=== PATIENT | female | born 1940 | race Caucasian/White ===

== ENCOUNTER 2017-09-12 08:14 | Inpatient (IN) | payer OTHER, MEDICAID ==
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
[2017-09-12 08:33] LABS: PLATELET COUNT 421 10^3/uL (150-400)
[2017-09-12] MEDS ORDERED: ROCURONIUM 50 MG/5 ML VIAL ONE (08:37)
[2017-09-12] MEDS ORDERED: MIDAZOLAM 2 MG/2 ML VIAL ONE (08:37)
[2017-09-12] MEDS ORDERED: PROPOFOL 200 MG/20 ML VIAL ONE (08:37)
[2017-09-12] MEDS ORDERED: fentaNYL 100 MCG/2 ML INJ ONE ×3 (08:37→10:46)
[2017-09-12] MEDS ORDERED: SUCCINYLCHOLINE CHLORIDE 200 MG/10 ML SYR IVP ONE (08:37)
[2017-09-12] MEDS ORDERED: LIDOCAINE 2% 5 ML SDV ONE (08:37)
[2017-09-12 08:41] LABS: INR 0.87 (0.83-1.16)
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
[2017-09-12] MEDS ORDERED: ceFAZolin 2 GM/SWFI 20 ML SYR IVP ONE (08:54)
[2017-09-12] MEDS ORDERED: BUPIVACAINE 0.5% 30 ML SDV ONE ×2 (09:09→09:38)
[2017-09-12] MEDS ORDERED: ONDANSETRON 4 MG/2 ML VIAL ONE ×3 (09:15→10:36)
[2017-09-12] MEDS ORDERED: DEXAMETHASONE 4 MG/ML VIAL ONE (09:15)
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
[2017-09-12] MEDS ORDERED: NALOXONE HCL 0.4 MG/ML INJ IVP PRN ×2 (09:32→10:42)
[2017-09-12] MEDS ORDERED: NS 500 ML IV PRN (09:32)
--- NOTE | 2017-09-12 09:56 | POSTOPPROG ---
Post Op Note Date of Operation: 09/12/17 Surgeon: Pietro Romero (, FACS) Anesthesiologist: Justin Junior MD Anesthesia: GET(General Endotracheal) Pre-op Diagnosis: SW to abd Post-op Diagnosis: same Procedure: laparotomy/lysis adhesions Findings: no visceral/vascular injury, trivial omental injury Inf/Abcess present in the surg proc area at time of surgery?: No EBL: Minimal (10ml) Drains: Rohini Specimen(s): none
[2017-09-12] MEDS ORDERED: ceFAZolin 2 GM/SWFI 2 GM/20 ML SYR IVP ONE (10:00)
[2017-09-12] MEDS ORDERED: BUPIVACAINE 0.5% NB SCH (10:00)
[2017-09-12] MEDS ORDERED: PUMP SET NB SCH (10:00)
[2017-09-12] MEDS ORDERED: HYDROmorphONE/DILAUDID 1 MG/ML INJ ONE ×2 (10:10→10:46)
[2017-09-12] MEDS: ONDANSETRON 4 MG/2 ML VIAL IVP PRN ×2 (10:20→10:38)
[2017-09-12] MEDS: fentaNYL 100 MCG/2 ML INJ IVP PRN ×3 (10:21→11:18)
[2017-09-12] MEDS: HYDROmorphONE/DILAUDID 1 MG/ML INJ IVP PRN ×3 (10:22→11:13)
[2017-09-12] MEDS ORDERED: BUPIVACAINE 0.25% 270 ML in PUMP SET 1 EA NB SCH (10:30)
[2017-09-12] MEDS ORDERED: LR 1,000 ML IV SCH (10:30)
[2017-09-12] MEDS: PROMETHAZINE HCL 25 MG/ML INJ IVP PRN ×2 (10:45→11:45)
[2017-09-12] MEDS ORDERED: PROMETHAZINE HCL 25 MG/ML INJ ONE (10:46)
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
--- NOTE | 2017-09-12 14:32 | POSTANESTH ---
Post Anesthetic Evaluation Cardiovascular Status: Normal, Stable, Similar to Pre-Op Cond Respiratory Status: Normal, Stable, Similar to Pre-op Cond. Level of Consciousness/Mental Status: Can Participate in Eval, Alert and Oriented Pain Control: Adequate, Prn Tx Ordered Nausea/Vomiting Control: Adequate, Prn Tx Ordered Complications Possibly Related to Anesthesia: None Noted
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
[2017-09-12] MEDS: ACETAMINOPHEN 325 MG TAB PO PRN (20:40)
[2017-09-13] MEDS ORDERED: LORazepam 2 MG/ML INJ ONE (00:28)
[2017-09-13] MEDS ORDERED: HALOPERIDOL LACT 5 MG/ML INJ ONE (00:29)
[2017-09-13] MEDS: LORazepam 2 MG/ML INJ IVP PRN (00:42)
[2017-09-13] MEDS ORDERED: HALOPERIDOL LACT 5 MG/ML INJ IVP ONE (00:45)
[2017-09-13] MEDS ORDERED: HALOPERIDOL LACT 5 MG/ML INJ IVP PRN (09:07)
[2017-09-13] MEDS: ENOXAPARIN 40 MG/0.4 ML SYR SC SCH (09:50)
[2017-09-13] MEDS: ACETAMINOPHEN 325 MG TAB PO PRN (09:51)
[2017-09-13] MEDS: LISINOPRIL 5 MG TAB PO SCH (09:51)
[2017-09-13] MEDS: DILTIAZEM XR 240 MG CAP PO SCH (09:51)
[2017-09-13] MEDS: PANTOPRAZOLE SODIUM 40 MG TAB PO SCH (09:51)
[2017-09-13] MEDS: LEVOTHYROXINE 88 MCG TAB PO SCH (09:52)
--- NOTE | 2017-09-13 10:16 | SOAPPROG ---
SOAP Progress Note Assessment/Plan: Assessment: Plan: Subjective: feels fine- minimal incicsional pain pid 1 ex lap- mild omental bleeding only finding after sw abdomen. on q pain pump in place pe tertiary trauma survey done- no new injuries identified abd sfot lungs clear heart nml s1s2 no m access: pod 1 ex lap on clearliq diet, yepez out. should progress rapidly to reg diet. should be ready for psyce eval and discharge in 1- 2 addidtional days. Objective: Vital Signs Temp Pulse Resp BP Pulse Ox 36.8 C 78 16 114/58 L 99 09/13/17 04:00 09/13/17 09:51 09/13/17 04:00 09/13/17 09:51 09/13/17 04:00 Laboratory Results 09/13/17 06:20 09/12/17 09/13/17 09/14/17 05:59 05:59 05:59 Intake Total 3805 Output Total 1785 Balance 2019 PT 12.0 SEC (12.0-15.0) 09/12/17 08:25 INR 0.87 (0.83-1.16) 09/12/17 08:25 ICD10 Worksheet Patient Problems: Problems Problem Status Onset Stab wound of abdominal wall Acute Suicidal ideation Acute
[2017-09-13] MEDS: HYDROCODONE/APAP 5/325 TAB PO PRN ×3 (10:31→19:22)
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
--- NOTE | 2017-09-13 15:20 | ASMTCMCOM ---
CM Note CM Note Notes: Chart reviewed. Spoke to intake co-ordinators at [facility]. Relayed wound care needs and information regarding psychiatric POA not in place presently. Patient on M1 Hold will need psychiatric eval when medically stable. Has on q for pain control, Refusing to see daughter presently. Will resume conversation with [facility] tomorrow. CM to follow. Date Signed: 09/13/2017 03:20 PM Electronically Signed By:Rena Jeronimo RN
[2017-09-13] MEDS: MIRTAZAPINE 15 MG TAB PO SCH (19:23)
[2017-09-13] MEDS ORDERED: NON-FORMULARY NEW DRUG (Mirtazapine [Remeron] 15 MG) PO SCH (21:00)
[2017-09-14] MEDS: LEVOTHYROXINE 88 MCG TAB PO SCH (04:13)
[2017-09-14] MEDS: HYDROCODONE/APAP 5/325 TAB PO PRN ×4 (04:13→20:39)
[2017-09-14] MEDS ORDERED: PROTOCOL MAGNESIUM 1 DOSE IV PRN (07:17)
[2017-09-14] MEDS ORDERED: PROTOCOL POTASSIUM 1 DOSE MISC PRN (07:17)
[2017-09-14] MEDS ORDERED: PROTOCOL CALCIUM 1 DOSE IV PRN (07:17)
[2017-09-14] MEDS ORDERED: PROTOCOL K PHOSPHATE 1 DOSE IV PRN (07:17)
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
[2017-09-14] MEDS: DILTIAZEM XR 240 MG CAP PO SCH (08:28)
[2017-09-14] MEDS: PANTOPRAZOLE SODIUM 40 MG TAB PO SCH (08:28)
[2017-09-14] MEDS: ENOXAPARIN 40 MG/0.4 ML SYR SC SCH (08:29)
[2017-09-14] MEDS: LISINOPRIL 5 MG TAB PO SCH (08:29)
[2017-09-14 08:56] LABS: PLATELET COUNT 311 10^3/uL (150-400)
[2017-09-14] MEDS ORDERED: CALCIUM GLUCONATE 50 ML IV ONE (09:47)
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
[2017-09-14] MEDS ORDERED: MAGNESIUM HYDROXIDE 30 ML UDCUP PO PRN (10:28)
[2017-09-14] MEDS ORDERED: POLYETHYLENE GLYCOL 3350 17 GM PKT PO PRN (10:28)
[2017-09-14] MEDS ORDERED: BISACODYL 10 MG SUPP PR PRN (10:28)
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
--- NOTE | 2017-09-14 13:10 | ASMTCMCOM ---
CM Note CM Note Notes: Spokewith Prakash (Sus[facility]) who states the facility can accept patient tomorrow if medically cleared and on -1Hold.Spoke to Jas (psych) and he reports patient will need "Rights" read to her. I have clarified with Susanne that the paperwork needed is the original M1 Hold that will need renewed tomorrow (RN aware), labratory data faxed ([phone])Emala form to be completed and [facility] stretcher transport is to be arranged. Right read to patient ( she signed) and original in chart. This document also needs to go the the facility, Patient states she doesn't want to go to new facility but she also thinks she is currently at [facility]. Called and spoke to her daughter Lili who is agreement with plan. I erified with Prakash that Lili can bring clothing to her mother as long as it is string free. CM to follow. Date Signed: 09/14/2017 01:10 PM Electronically Signed By:Rena Jeronimo RN
--- NOTE | 2017-09-14 16:03 | ASMTCMCOM ---
CM Note CM Note Notes: Spoke with [facility] intake. (Susanne) who states the facility can accept patient tomorrow if medically cleared then will need a TLC eval which can't be ordered till patient cleared medically and on M1Hold.Spoke to Jas (psych) and he reports patient will need "Rights" read to her. I have clarified with Susanne that the paperwork needed is the original M1 Hold that will need renewed tomorrow (RN aware), labs and data faxed ([phone]) Emtala form to be completed and [facility] stretcher transport is to be arranged. Right read to patient ( she signed) and original in chart. This document also needs to go the the facility, Patient states she doesn't want to go to new facility but noteably she also thinks she is currently at [facility]. Called and spoke to her daughter Lili who is agreement with plan. I verified with [facility] that Lili can bring clothing to her mother as long as it is "string" free. CM to follow. Date Signed: 09/14/2017 04:03 PM Electronically Signed By:Rena Jeronimo RN
--- NOTE | 2017-09-14 16:21 | ASMTCMCOM ---
CM Note CM Note Notes: CM called [facility] one more time for clarity of needs for meeting admission criteria. Per admission intake Psychiatric eval by TLC absolutely required for patient to be considered for inpatient. Notified Merry, patient daughter of likelihood her mother would be inpt till Sunday as Holiday falls on Sunday. CM to follow Date Signed: 09/14/2017 04:20 PM Electronically Signed By:Rena Jeronimo RN
[2017-09-14] MEDS: SENNOSIDES/DOCUSATE SODIUM TAB PO SCH (20:38)
[2017-09-14] MEDS: MIRTAZAPINE 15 MG TAB PO SCH (20:38)
[2017-09-14] MEDS: ONDANSETRON 4 MG/2 ML VIAL IVP PRN (20:39)
[2017-09-14] MEDS ORDERED: FUROSEMIDE 20 MG/2 ML VIAL IVP ONE (21:15)
[2017-09-15] MEDS: LEVOTHYROXINE 88 MCG TAB PO SCH (05:48)
[2017-09-15] MEDS: ONDANSETRON 4 MG/2 ML VIAL IVP PRN ×3 (05:54→22:02)
[2017-09-15 05:59] LABS: PLATELET COUNT 334 10^3/uL (150-400)
[2017-09-15] MEDS: SENNOSIDES/DOCUSATE SODIUM TAB PO SCH ×2 (07:45→20:34)
[2017-09-15] MEDS: DILTIAZEM XR 240 MG CAP PO SCH (07:46)
[2017-09-15] MEDS: PANTOPRAZOLE SODIUM 40 MG TAB PO SCH (07:46)
[2017-09-15] MEDS: LISINOPRIL 5 MG TAB PO SCH (07:46)
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
[2017-09-15] MEDS ORDERED: CALCIUM GLUCONATE 50 ML IV ONE (08:13)
[2017-09-15] MEDS: ENOXAPARIN 40 MG/0.4 ML SYR SC SCH (09:09)
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
[2017-09-15] MEDS: MIRTAZAPINE 15 MG TAB PO SCH (20:34)
[2017-09-15] MEDS: HYDROCODONE/APAP 5/325 TAB PO PRN (23:50)
[2017-09-16 03:50] LABS: PLATELET COUNT 429 10^3/uL (150-400)
[2017-09-16] MEDS: ONDANSETRON 4 MG/2 ML VIAL IVP PRN ×3 (04:00→22:24)
[2017-09-16] MEDS: LEVOTHYROXINE 88 MCG TAB PO SCH (06:01)
[2017-09-16] MEDS: SENNOSIDES/DOCUSATE SODIUM TAB PO SCH ×2 (08:46→19:58)
[2017-09-16] MEDS: PANTOPRAZOLE SODIUM 40 MG TAB PO SCH (08:46)
[2017-09-16] MEDS: DILTIAZEM XR 240 MG CAP PO SCH (08:46)
[2017-09-16] MEDS: LISINOPRIL 5 MG TAB PO SCH (08:46)
[2017-09-16] MEDS: ENOXAPARIN 40 MG/0.4 ML SYR SC SCH (08:47)
--- NOTE | 2017-09-16 09:24 | TRAUMAPN ---
Subjective: awake/resting comfortably emesis x 1 yesterday Objective: Vital Signs Temp Pulse Resp BP Pulse Ox 36.7 C 108 H 20 159/75 H 89 L 09/16/17 07:48 09/16/17 07:48 09/16/17 07:48 09/16/17 07:48 09/16/17 07:48 Laboratory Results 09/16/17 03:40 09/16/17 03:40 09/15/17 09/16/17 09/17/17 05:59 05:59 05:59 Intake Total 1700 1550 Balance 1700 1550 PT 12.0 SEC (12.0-15.0) 09/12/17 08:25 INR 0.87 (0.83-1.16) 09/12/17 08:25 - C-Spine Clearance Cervical Spine Cleared: Yes Provider who Cleared Cervical Spine: ANA LILIA Physical Exam - Physical Exam General Appearance: mild distress Respiratory: lungs clear, normal breath sounds, decreased breath sounds Cardiac/Chest: regular rate, rhythm Abdomen: non-tender, soft, distended, other (tympanitic/incision o.k.) Pelvic Exam: deferred Rectal: deferred Neuro/Psych: alert, oriented x 3, depressed affect
[2017-09-16] MEDS: HYDROCODONE/APAP 5/325 TAB PO PRN ×2 (10:55→11:32)
--- NOTE | 2017-09-16 12:37 | SOAPPROG ---
Downtime Inpatient MD Late Entry SOAP Note: KUB shows massive gastric distention/will place NGT and make patient NPO until resolved
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
[2017-09-16] MEDS: D5W 1/2 NS W/ 20 KCl/L 1,000 ML IV SCH (17:38)
[2017-09-16] MEDS: MIRTAZAPINE 15 MG TAB PO SCH (19:58)
[2017-09-17] MEDS: D5W 1/2 NS W/ 20 KCl/L 1,000 ML IV SCH (01:58)
[2017-09-17] MEDS: ONDANSETRON 4 MG/2 ML VIAL IVP PRN (04:44)
[2017-09-17 05:06] LABS: PLATELET COUNT 394 10^3/uL (150-400)
[2017-09-17] MEDS ORDERED: CALCIUM GLUCONATE 50 ML IV ONE (05:55)
[2017-09-17] MEDS: DILTIAZEM XR 240 MG CAP PO SCH (08:31)
[2017-09-17] MEDS: LISINOPRIL 5 MG TAB PO SCH (08:32)
[2017-09-17] MEDS: SENNOSIDES/DOCUSATE SODIUM TAB PO SCH (08:32)
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
[2017-09-17] MEDS: ENOXAPARIN 40 MG/0.4 ML SYR SC SCH (11:27)
[2017-09-17] MEDS: LEVOTHYROXINE 100 MCG/5 ML SYR IVP SCH (11:27)
[2017-09-17] MEDS: PANTOPRAZOLE SODIUM 40 MG VIAL IVP SCH (11:27)
[2017-09-17] MEDS: LORazepam 2 MG/ML INJ IVP PRN ×2 (11:28→15:16)
[2017-09-17] MEDS ORDERED: LIDOCAINE 2% JELLY 20 ML (UROJECT) ONE (11:48)
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
[2017-09-17] MEDS ORDERED: LABETALOL HCL 5 MG/ML 20 ML MDV IVP PRN (15:59)
--- NOTE | 2017-09-17 16:33 | ASMTCMCOM ---
CM Note CM Note Notes: Need TLC to eval when patient is medically cleared for placement at [facility]. Date Signed: 09/17/2017 04:33 PM Electronically Signed By:Susie Valdes LCSW
[2017-09-17] MEDS: NS 1,000 ML IV SCH (23:34)
[2017-09-18 02:41] LABS: PLATELET COUNT 323 10^3/uL (150-400)
[2017-09-18] MEDS ORDERED: DILTIAZEM 125 MG in D5W 125 ML IV SCH (06:30)
[2017-09-18] MEDS ORDERED: AMIODARONE HCL 200 ML IV SCH (06:30)
[2017-09-18] MEDS ORDERED: DILTIAZEM HCL/D5W 125 ML IV SCH (06:30)
[2017-09-18] MEDS: PANTOPRAZOLE SODIUM 40 MG VIAL IVP SCH (08:37)
[2017-09-18] MEDS: ENOXAPARIN 40 MG/0.4 ML SYR SC SCH (08:37)
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
--- NOTE | 2017-09-18 11:49 | ECHO ---
[email or web address] [address] [address] Main: [phone] Fax: Transthoracic Echocardiogram Name: AYANNA PINEDA MR#: [id number] Study Date: 09/18/2017 Study Time: 07:48 AM Date of : 1940 Age: 77 year(s) Height: 162.6 cm (64 in.) Weight: 63.5 kg (140 lb.) BSA: 1.68 m2 Gender: Female Examination: Echo Indication: Arrythmia, A-fib Image Quality: Contrast: Requested by: Sujata Barnes BP: 122 mmHg/63 mmHg Heart Rate: Rhythm: Atrial fibrillation Indication: Arrythmia, A-fib Procedure [facility] Physical Therapist: Jeferson Townsend Reading Physician: Zoltan Hernandez Requesting Provider: Conclusions: Normal size left ventricle. There is systolic anterior motion of the anterior mitral valve leaflet. Global hypercontractility of the left ventricle. EF is 78 %. No regional wall motion abnormality. Diastolic dysfunction is present. . There is mid left venticular gradient with chordal ALICIA. The gradient is 72mmHg. Normal size right ventricle. There is systolic anterior motion of the anterior mitral valve leaflet. There is moderate focal calcification of the posterior mitral valve leaflet.. The aortic valve is normal in appearance and function. There is no aortic valve regurgitation. The tricuspid valve is normal in appearance and function. There is no subcostal view due to surgical dressing.. Measurements: Chambers Valvular Assessment AV/MV Valvular Assessment TV/PV Normal Normal Normal Name Value Range Name Value Range Name Value Range Ao Enedina (MM): 2.9 cm (2.2 cm-3.7 AV Vmax: 2.59 m/s (1 m/s-1.7 TR Vmax: 4.13 mm/s ( - ) cm) m/s) TR PGmax: 68 mmHg ( - ) IVSd (2D): 0.8 cm (0.6 cm-1.1 AV maxP mmHg ( - ) syst. PAP: 73 mmHg ( - ) cm) LVOT Vmax: 2.51 m/s (0.7 m/s-1.1 LVDd (2D): 3.7 cm (3.9 cm-5.3 m/s) cm) MV E Vmax: 0.97 m/s ( - ) LVDs (2D): 2.0 cm (2.1 cm-4 MV A Vmax: 1.65 m/s ( - ) cm) MV E/A: 0.59 ( - ) LVPWd (2D): 0.8 cm ( - ) MV meanP mmHg ( - ) LVEF (2D): 78 (>=54 %) Patient: AYANNA PINEDA Study Date: 09/18/2017 Page 1 of 2 07:48 AM Continued Measurements: Chambers Valvular Assessment AV/MV Valvular Assessment TV/PV Name Value Name Value Name Value LADs Lon.7 cm MV Annulus: 3.0 cm CVP (est.): 5 mmHg LA Area: 18.3 cm2 MV VTI: 43.30 cm MR ERO: 0.120 cm2 MR PISA radius: 5 mm MR Reg. Volume: 17 ml MR Reg. Fraction: 6 % Findings: Left Ventricle: Normal size left ventricle. There is systolic anterior motion of the anterior mitral valve leaflet. Global hypercontractility of the left ventricle. EF is 78 %. No regional wall motion abnormality. Diastolic dysfunction is present. . There is mid left venticular gradient with chordal ALICIA. The gradient is 72mmHg. Right Ventricle: Normal size right ventricle. Left Atrium: The left atrium is normal in size. Right Atrium: The right atrium is normal in size. Mitral Valve: Mild to moderate mitral regurgitation. There is systolic anterior motion of the anterior mitral valve leaflet. There is moderate focal calcification of the posterior mitral valve leaflet.. Aortic Valve: The aortic valve is normal in appearance and function. There is no aortic valve regurgitation. Tricuspid Valve: The tricuspid valve is normal in appearance and function. Pulmonic Valve: The pulmonic valve is normal in appearance and function. Aorta: The aorta is normal. Pericardium: No pericardial effusion. Exam Comments: There is no subcostal view due to surgical dressing.. (No Signature Object) Patient: AYANNA PINEDA Study Date: 09/18/2017 Page 2 of 2 07:48 AM [id number]
[2017-09-18] MEDS: LEVOTHYROXINE 100 MCG/5 ML SYR IVP SCH (12:08)
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
--- NOTE | 2017-09-18 17:36 | ASMTCMCOM ---
CM Note CM Note Notes: Contacted [facility] and gave them an update. So we are waiting for a psych eval when cleared medically. Date Signed: 09/18/2017 05:36 PM Electronically Signed By:Susie Valdes LCSW
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
[2017-09-18] MEDS: MIRTAZAPINE 15 MG ODTAB PO SCH (20:26)
[2017-09-18] MEDS: LORazepam 2 MG/ML INJ IVP PRN (23:29)
[2017-09-18] MEDS: NS 1,000 ML IV SCH (23:30)
[2017-09-19] MEDS: LORazepam 2 MG/ML INJ IVP PRN ×2 (04:51→19:49)
[2017-09-19 05:15] LABS: PLATELET COUNT 370 10^3/uL (150-400)
[2017-09-19] MEDS ORDERED: D50W 25 GM/50 ML SYR IVP ONE (06:20)
[2017-09-19] MEDS ORDERED: D50W 25 GM/50 ML VIAL IVP ONE (06:30)
[2017-09-19] MEDS: NS 1,000 ML IV SCH (09:10)
[2017-09-19] MEDS: PANTOPRAZOLE SODIUM 40 MG VIAL IVP SCH (09:10)
[2017-09-19] MEDS: ENOXAPARIN 40 MG/0.4 ML SYR SC SCH (09:10)
[2017-09-19] MEDS ORDERED: PROTOCOL POTASSIUM 1 DOSE MISC PRN (09:32)
[2017-09-19] MEDS: LEVOTHYROXINE 100 MCG/5 ML SYR IVP SCH (10:41)
[2017-09-19] MEDS ORDERED: POTASSIUM CL 10 MEQ TAB PO ONE ×2 (10:46→19:28)
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
[2017-09-19] MEDS: MIRTAZAPINE 15 MG ODTAB PO SCH (19:49)
[2017-09-19] MEDS: ACETAMINOPHEN 325 MG TAB PO PRN (23:45)
[2017-09-20] MEDS: LORazepam 2 MG/ML INJ IVP PRN (02:09)
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
[2017-09-20 05:54] LABS: PLATELET COUNT 393 10^3/uL (150-400)
[2017-09-20] MEDS ORDERED: POTASSIUM CL 10 MEQ TAB PO ONE (06:43)
[2017-09-20] MEDS: LEVOTHYROXINE 88 MCG TAB PO SCH (06:44)
[2017-09-20] MEDS ORDERED: CHOLECALCIFEROL VIT D3 50,000 UNIT CAP PO SCH (09:00)
[2017-09-20] MEDS: DILTIAZEM XR 240 MG CAP PO SCH (09:23)
[2017-09-20] MEDS: PANTOPRAZOLE SODIUM 40 MG TAB PO SCH (09:24)
[2017-09-20] MEDS: ENOXAPARIN 40 MG/0.4 ML SYR SC SCH (09:24)
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
[2017-09-20] MEDS ORDERED: LORazepam 2 MG/ML INJ IVP PRN (09:36)
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
--- NOTE | 2017-09-20 15:38 | ASMTCMCOM ---
CM Note CM Note Notes: Laney was able to complete the psych eval as patient became more interactive. [facility] has decided patient will go for inpatient treatment. [place] [facility] no longer has beds so [facility] will now need to complete the bed search. Laney renewed the M1 which had . The current M1 is in the front of the chart. Also, Laney gave me a copy of the patient rights which is filed in the front of the patient's chart. CM available for consult. Date Signed: 09/20/2017 03:38 PM Electronically Signed By:Sweetie Burch LCSW
[2017-09-20] MEDS ORDERED: LOPERAMIDE HCL 2 MG CAP PO PRN (16:40)
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
[2017-09-20] MEDS: MIRTAZAPINE 15 MG ODTAB PO SCH (20:48)
[2017-09-20] MEDS: APIXABAN 5 MG TAB PO SCH (20:48)
[2017-09-20] MEDS: ACETAMINOPHEN 325 MG TAB PO PRN (21:56)
[2017-09-21 05:27] LABS: PLATELET COUNT 526 10^3/uL (150-400)
[2017-09-21] MEDS: LEVOTHYROXINE 88 MCG TAB PO SCH (06:38)
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
[2017-09-21] MEDS: PANTOPRAZOLE SODIUM 40 MG TAB PO SCH (09:09)
[2017-09-21] MEDS: APIXABAN 5 MG TAB PO SCH (09:09)
[2017-09-21] MEDS: DILTIAZEM XR 240 MG CAP PO SCH (09:09)
--- NOTE | 2017-09-21 12:45 | ASMTCMCOM ---
CM Note CM Note Notes: Patient developed medical complications including diarrhea and needs a longer stay in the hospital. Spoke with [facility] to let them know patient is no longer medically clear. [facility] will need to be contacted to re-eval when patient is medically clear again. CM will follow. Date Signed: 09/21/2017 12:45 PM Electronically Signed By:Sweetie Burch LCSW
[2017-09-21] MEDS: ONDANSETRON 4 MG/2 ML VIAL IVP PRN (13:06)
[2017-09-21] MEDS ORDERED: LOPERAMIDE HCL 2 MG CAP PO PRN (13:30)
[2017-09-21] MEDS: ACETAMINOPHEN 325 MG TAB PO PRN (14:29)
[2017-09-21] MEDS ORDERED: IOPAMIDOL (ISOVUE-300) 100 ML BTL ONE (15:40)
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
[2017-09-21] MEDS: LORazepam 1 MG TAB PO PRN (21:01)
[2017-09-21] MEDS: MIRTAZAPINE 15 MG ODTAB PO SCH (21:01)
[2017-09-22 05:10] LABS: PLATELET COUNT 506 10^3/uL (150-400)
[2017-09-22] MEDS: ONDANSETRON 4 MG/2 ML VIAL IVP PRN (07:25)
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
[2017-09-22] MEDS ORDERED: D5W 1/2 NS W/ 20 KCl/L 1,000 ML IV SCH (08:30)
[2017-09-22] MEDS: PANTOPRAZOLE SODIUM 40 MG TAB PO SCH (08:31)
[2017-09-22] MEDS: DILTIAZEM XR 240 MG CAP PO SCH (08:31)
[2017-09-22] MEDS: LEVOTHYROXINE 88 MCG TAB PO SCH (08:32)
[2017-09-22] MEDS ORDERED: LIDOCAINE 2% JELLY 5 ML TUBE ONE ×2 (09:32→09:44)
[2017-09-22] MEDS: CEPACOL LOZENGE PO PRN ×2 (15:01→22:44)
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
[2017-09-22] MEDS: ACETAMINOPHEN 325 MG TAB PO PRN (19:36)
[2017-09-22] MEDS: LORazepam 1 MG TAB PO PRN (22:39)
[2017-09-22] MEDS: MIRTAZAPINE 15 MG ODTAB PO SCH (22:39)
[2017-09-23] MEDS: LEVOTHYROXINE 88 MCG TAB PO SCH ×2 (06:25→09:07)
[2017-09-23 06:27] LABS: PLATELET COUNT 454 10^3/uL (150-400)
[2017-09-23] MEDS: DILTIAZEM XR 240 MG CAP PO SCH (09:07)
[2017-09-23] MEDS: PANTOPRAZOLE SODIUM 40 MG TAB PO SCH (09:07)
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
[2017-09-23] MEDS: ACETAMINOPHEN 325 MG TAB PO PRN ×2 (12:25→19:23)
[2017-09-23] MEDS: LORazepam 1 MG TAB PO PRN ×2 (15:22→19:23)
--- NOTE | 2017-09-23 16:23 | ASMTCMCOM ---
CM Note CM Note Notes: Contacted [facility] about discharge in AM for patient. They will contact [facility] and let them know that patient will be ready for eval in AM. Date Signed: 09/23/2017 04:23 PM Electronically Signed By:Susie Valdes LCSW
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
[2017-09-23] MEDS: MIRTAZAPINE 15 MG ODTAB PO SCH (19:23)
[2017-09-24] MEDS: LORazepam 1 MG TAB PO PRN ×2 (01:10→19:13)
[2017-09-24] MEDS: LEVOTHYROXINE 88 MCG TAB PO SCH (04:15)
[2017-09-24 04:38] LABS: PLATELET COUNT 474 10^3/uL (150-400)
[2017-09-24] MEDS: DILTIAZEM XR 240 MG CAP PO SCH (10:00)
[2017-09-24] MEDS: PANTOPRAZOLE SODIUM 40 MG TAB PO SCH (10:00)
[2017-09-24] MEDS ORDERED: LOPERAMIDE HCL 2 MG CAP PO ONE (10:04)
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
[2017-09-24] MEDS: ACETAMINOPHEN 325 MG TAB PO PRN ×2 (12:54→19:13)
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
--- NOTE | 2017-09-24 17:48 | ASMTCMCOM ---
CM Note CM Note Notes: Daughter, Lili here for a visit but patient didn't want to talk to her. Patient was up and walked with aide around unit. [facility] working on placement, haven't found as yet. Daughter would like to be contacted when we learn where patient goes for psych tx, . Date Signed: 09/24/2017 05:47 PM Electronically Signed By:Susie Valdes LCSW
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
[2017-09-24] MEDS ORDERED: LOPERAMIDE HCL 2 MG CAP PO PRN (18:24)
[2017-09-24] MEDS: APIXABAN 5 MG TAB PO SCH (19:13)
[2017-09-24] MEDS: MIRTAZAPINE 15 MG ODTAB PO SCH (19:13)
[2017-09-25] MEDS: LORazepam 1 MG TAB PO PRN ×2 (00:12→21:33)
[2017-09-25] MEDS: ACETAMINOPHEN 325 MG TAB PO PRN ×2 (01:52→20:45)
[2017-09-25] MEDS: LEVOTHYROXINE 88 MCG TAB PO SCH (06:16)
[2017-09-25 06:46] LABS: PLATELET COUNT 511 10^3/uL (150-400)
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
[2017-09-25] MEDS: DILTIAZEM XR 240 MG CAP PO SCH (09:16)
[2017-09-25] MEDS: PANTOPRAZOLE SODIUM 40 MG TAB PO SCH (09:17)
[2017-09-25] MEDS: APIXABAN 5 MG TAB PO SCH ×2 (09:17→20:41)
[2017-09-25 20:03] VITALS: TEMP 97.7; O2SAT 97
[2017-09-25] MEDS: MIRTAZAPINE 15 MG ODTAB PO SCH (20:41)
[2017-09-25 23:21] VITALS: BP 138/76; PULSE 76; RESP 16
[2017-09-26] MEDS ORDERED: ONDANSETRON DISINTEGRATING 4 MG TAB ONE (00:41)
== END 2017-09-26 05:39 | DRG 357 ==
LOC: EDUNIT# → EEVIPCON 08:25 → F2N 11:40
PROVIDERS: ADMIT Surgery; ATTEND Surgery
PROC: 0DJW0ZZ Inspection of Peritoneum, Open Approach (ICD-10-PCS; principal; 2017-09-12 08:00)
PROC: 0W3G0ZZ Control Bleeding in Peritoneal Cavity, Open Approach (ICD-10-PCS; principal; 2017-09-12 08:00)
DX: S31.63 Puncture wound without foreign body of abdominal wall with penetration into peritoneal cavity (principal); E87.1 Hypo-osmolality and hyponatremia; N17.9 Acute kidney failure, unspecified; K91.89 Other postprocedural complications and disorders of digestive system; K46.0 Unspecified abdominal hernia with obstruction, without gangrene; R19.7 Diarrhea, unspecified; X78.8XXA Intentional self-harm by other sharp object, initial encounter; E03.9 Hypothyroidism, unspecified; I10 Essential (primary) hypertension; F32.9 Major depressive disorder, single episode, unspecified; Y92.199 Unspecified place in other specified residential institution as the place of occurrence of the external cause; I48.91 Unspecified atrial fibrillation; K21.9 Gastro-esophageal reflux disease without esophagitis; G30.9 Alzheimer's disease, unspecified; F02.80 Dementia in other diseases classified elsewhere, unspecified severity, without behavioral disturbance, psychotic disturbance, mood disturbance, and anxiety
CPT/HCPCS: 82947-QW; 92507-GN; 92523-GN; 92610-GN; 97116-GP; 97161-GP; 97164-GP; 97166-GO; 97530-GO; 97530-GP; 97532-GO; 97535-GO; G0480; G8978-GP-CI; G8978-GP-CJ; G8978-GP-CK; G8979-GP-CI; G8980-GP-CI; G8987-GO-CJ; G8988-GO-CI; G8996-GN-CI; G8997-GN-CI; G9168-GN-CJ; G9168-GO-CI; G9169-GN-CI; G9169-GN-CJ; G9170-GN-CI; G9170-GN-CJ; J0330; J0610; J0690; J1100; J1170; J1630; J1650; J1940; J2060; J2250; J2405; J2550; J2704; J3010; Q9967

== ENCOUNTER → 2017-11-05 | Outpatient (CLI) | payer OTHER, MEDICAID ==
[~2017-11-05] MED LIST: IOPAMIDOL (ISOVUE-300) 100 ML BTL ONE
== END ==
LOC: FIMAGING 13:36
DX: N32.89 Other specified disorders of bladder (principal)
CPT/HCPCS: 74178; Q9967